=== PATIENT | female | born 1980 | race Caucasian/White ===

== ENCOUNTER 2021-04-19 22:22 | Emergency (ER) | payer MEDICAID ==
[~2021-04-19] VITALS: Ht 152.4 cm; Wt 73.0 kg
[2021-04-20 01:59] LABS: BASOPHILS % 0.4 % (0.0-2.0); EOSINOPHILS % 1.6 % (0.0-5.0); HEMATOCRIT. 35.7 % (36.0-48.0); HEMOGLOBIN. 10.8 g/dL (12.0-16.0); LYMPHOCYTES % 29.9 % (20.0-50.0); MEAN CORPUSCULAR HEMOGLOBIN 19.3 pg (28.0-32.0); MEAN CORPUSCULAR VOLUME 63.9 fL (81.0-99.0); MEAN PLATELET VOLUME 7.7 fl (7.4-10.4); MONOCYTES % 5.4 % (2.0-8.0); NEUTROPHILS % 62.7 % (40.0-76.0); PLATELET 313 x1000/uL (130-400); RED CELL DISTRIBUTION WIDTH 18.5 % (11.6-14.6)
[2021-04-20 02:04] LABS: CHLORIDE 106 mEq/L (98-107); PLATELET ESTIMATE NORMAL
[2021-04-20 03:38] VITALS: BP 127/83
== END 2021-04-20 03:38 | disposition home or self-care (01) ==
LOC: ER 22:31
DX: D25.9 Leiomyoma of uterus, unspecified (principal); N92.0 Excessive and frequent menstruation with regular cycle; D64.9 Anemia, unspecified; R03.0 Elevated blood-pressure reading, without diagnosis of hypertension
CPT/HCPCS: 36415; 76830; 76856; 80053; 81025; 85025; 86850; 86900; 99284

== ENCOUNTER 2025-03-21 09:21 | Emergency (ER) | payer MEDICAID ==
[~2025-03-21] VITALS: Ht 152.4 cm; Wt 88.0 kg
[~2025-03-21 09:21] MED LIST: INSU100I28 SQ; LEVO-65 MT
[2025-03-21 09:38] VITALS: TEMP 37.1; O2SAT 99
[2025-03-21 10:08] LABS: BASOPHILS % 0.5 % (0.0-2.0); EOSINOPHILS % 2.2 % (0.0-5.0); HEMATOCRIT. 35.3 % (36.0-48.0); HEMOGLOBIN. 11.2 g/dL (12.0-16.0); LYMPHOCYTES % 32.9 % (20.0-50.0); MEAN PLATELET VOLUME 8.0 fl (7.4-10.4); MONOCYTES % 6.4 % (2.0-8.0); NEUTROPHILS % 58.0 % (40.0-76.0); PLATELET 278 x1000/uL (130-400); RED BLOOD CELL COUNT 5.08 mill/uL (4.2-5.4); RED CELL DISTRIBUTION WIDTH 18.1 % (11.6-14.6)
[2025-03-21 10:10] LABS: ADD RBC MORPHOLOGY YES
[2025-03-21 10:15] LABS: CREATININE 0.9 mg/dL (0.6-1.0); UREA NITROGEN BLOOD 13 mg/dL (9-23)
[2025-03-21 11:06] VITALS: BP 120/80; PULSE 86; RESP 14; O2SAT 99
[2025-03-21 11:36] LABS: PLATELET ESTIMATE NORMAL
== END 2025-03-21 11:10 | disposition home or self-care (01) ==
LOC: ER 09:21
DX: E11.9 Type 2 diabetes mellitus without complications (principal); Z79.4 Long term (current) use of insulin; Z98.890 Other specified postprocedural states; Z79.899 Other long term (current) drug therapy
CPT/HCPCS: 36415; 80048; 82962; 83036; 85025; 99283